=== PATIENT | female | born 1990 | race Caucasian/White ===

== ENCOUNTER 2017-06-19 21:06 | Emergency (ER) | payer SELFPAY ==
[~2017-06-19] VITALS: Ht 168.9 cm; Wt 91.2 kg
[2017-06-19 21:11] VITALS: TEMP 36.9; Ht 168.9 cm; Wt 91.2 kg
[2017-06-19] MEDS ORDERED: SODIUM CHLORIDE 0.9% 1000ML 1,000 ML IV STA (21:31)
--- NOTE | 2017-06-19 21:42 | EMERGENCY ROOM VISIT NOTE ---
History Report prepared by Kymibmarlen: Kristen Lerner Under the Supervision of: Dr. Asad Lin D.O. First contact with patient: 21:21 Chief Complaint: ED VAG BLEEDING Stated Complaint: MISCARRIED WED,POSSIBLE TISSUE LEFT,BLEEDING History of Present Illness The patient is a 26 year old female who presents to the Emergency Room with complaints of constant vaginal bleeding for three days. She also notes she found tissue in her vagina canal just prior to arrival. The patient found out that she was a couple weeks ago. [facility] and they told her that the fetus had no heartbeat and that she had a spontaneous . The patient notes that she passed a clump of white tissue two days ago. Her last normal period was 04/04/17. She has a history of migraines, has had her tonsils and wisdom teeth removed. She denies any alcohol or tobacco use. Source of History: patient Onset: tonight Timing: constant Note: Pt notes tissue in her vaginal canal Review of Systems See HPI for pertinent positives & negatives. A total of 10 systems reviewed and were otherwise negative. Past Medical & Surgical Surgical Problems: (1) Hx of tonsillectomy (2) [place] teeth removed Family History no pertinent family history stated Social History Smoking Status: Never Smoker Smokeless Tobacco Use: No Alcohol Use: none Marital Status: Current/Historical Medications Scheduled Ibuprofen (Advil), 800-1,000 MG PO prn Scheduled PRN Acetaminophen (Tylenol), 1,000 MG PO DAILY PRN for Headache or Pain Allergies Coded Allergies: Albuterol (Verified Allergy, Severe, FLARES UP ASTHMA, 06/19/17) Physical Exam Vital Signs Date Time Temp Pulse Resp B/P (MAP) Pulse Ox O2 Delivery O2 Flow Rate FiO2 06/20/17 01:20 102 18 117/71 100 06/19/17 21:11 36.9 102 18 127/80 100 Room Air Physical Exam GENERAL: Patient is awake, alert, and in no acute distress. Patient is resting uncomfortable and mildly anxious. EYES: The conjunctivae are clear. The pupils are round and reactive. EARS, NOSE, MOUTH AND THROAT: The nose is without any evidence of any deformity. Mucous membranes are moist tongue is midline NECK: The neck is nontender and supple. RESPIRATORY: Normal respiratory effort is noted there is no evidence of wheezing rhonchi or rales CARDIOVASCULAR: Regular rate and rhythm noted there no murmurs rubs or gallops normal S1 normal S2 GASTROINTESTINAL: The abdomen is soft. Bowel sounds are present in all quadrants. Abdomen is nontender MUSCULOSKELETAL/EXTREMITIES: There is no evidence of gross deformity full range of motion is noted in the hips and shoulders SKIN: There is no obvious evidence of any rash. There are no petechiae, pallor or cyanosis noted. NEUROLOGIC: Patient is awake alert and oriented x3 Medical Decision & Procedures ER Provider Diagnostic Interpretation: Radiology results as stated below per my review and radiologist interpretation: US OB 1st TRIMESTER: No evidence of intrauterine . Heterogeneous endometrium measures up to 1.9 cm with vascularity, cannot exclude retained products of conception. Unremarkable left ovary. Right ovary not visualized. Radiologist Radha Sommers Laboratory Results 06/19/17 21:48 Red Blood Count 4.24, Mean Corpuscular Volume 92.2, Mean Corpuscular Hemoglobin 30.4, Mean Corpuscular Hemoglobin Concent 33.0, Mean Platelet Volume 10.4, Neutrophils (%) (Auto) 59.5, Lymphocytes (%) (Auto) 32.6, Monocytes (%) (Auto) 6.9, Eosinophils (%) (Auto) 0.5, Basophils (%) (Auto) 0.2, Neutrophils # (Auto) 7.86, Lymphocytes # (Auto) 4.30, Monocytes # (Auto) 0.91, Eosinophils # (Auto) 0.07, Basophils # (Auto) 0.02 06/19/17 21:48 Test 06/19/17 21:48 06/19/17 23:20 White Blood Count 13.20 K/uL (4.8-10.8) Red Blood Count 4.24 M/uL (4.2-5.4) Hemoglobin 12.9 g/dL (12.0-16.0) Hematocrit 39.1 % (37-47) Mean Corpuscular Volume 92.2 fL (80-100) Mean Corpuscular Hemoglobin 30.4 pg (25-34) Mean Corpuscular Hemoglobin Concent 33.0 g/dl (32-36) Platelet Count 249 K/uL (130-400) Mean Platelet Volume 10.4 fL (7.4-10.4) Neutrophils (%) (Auto) 59.5 % Lymphocytes (%) (Auto) 32.6 % Monocytes (%) (Auto) 6.9 % Eosinophils (%) (Auto) 0.5 % Basophils (%) (Auto) 0.2 % Neutrophils # (Auto) 7.86 K/uL (1.4-6.5) Lymphocytes # (Auto) 4.30 K/uL (1.2-3.4) Monocytes # (Auto) 0.91 K/uL (0.11-0.59) Eosinophils # (Auto) 0.07 K/uL (0-0.5) Basophils # (Auto) 0.02 K/uL (0-0.2) RDW Standard Deviation 43.6 fL (36.4-46.3) RDW Coefficient of Variation 12.9 % (11.5-14.5) Immature Granulocyte % (Auto) 0.3 % Immature Granulocyte # (Auto) 0.04 K/uL (0.00-0.02) Prothrombin Time 10.3 SECONDS (9.0-12.0) Prothromb Time International Ratio 1.0 (0.9-1.1) Activated Partial Thromboplast Time 26.6 SECONDS (21.0-31.0) Partial Thromboplastin Ratio 1.0 Anion Gap 8.0 mmol/L (3-11) Est Creatinine Clear Calc Drug Dose 66.4 ml/min Estimated GFR () 55.9 Estimated GFR (Non- 48.3 BUN/Creatinine Ratio 7.4 (10-20) Calcium Level 9.3 mg/dl (8.5-10.1) Total Bilirubin 0.3 mg/dl (0.2-1) Aspartate Amino Transf (AST/SGOT) 12 U/L (15-37) Alanine Aminotransferase (ALT/SGPT) 26 U/L (12-78) Alkaline Phosphatase 89 U/L (45-117) Total Protein 7.9 gm/dl (6.4-8.2) Albumin 3.6 gm/dl (3.4-5.0) Globulin 4.3 gm/dl (2.5-4.0) Albumin/Globulin Ratio 0.8 (0.9-2) Human Chorionic Gonadotropin, Quant 211 mIU/mL Urine Color YELLOW Urine Appearance CLEAR (CLEAR) Urine pH 6.5 (4.5-7.5) Urine Specific [place] 1.016 (1.000-1.030) Urine Protein NEG (NEG) Urine Glucose (UA) NEG (NEG) Urine Ketones NEG (NEG) Urine Occult Blood 3+ (NEG) Urine Nitrite NEG (NEG) Urine Bilirubin NEG (NEG) Urine Urobilinogen NEG (NEG) Urine Leukocyte Esterase SMALL (NEG) Urine WBC (Auto) 5-10 /hpf (0-5) Urine RBC (Auto) >30 /hpf (0-4) Urine Hyaline Casts (Auto) 1-5 /lpf (0-5) Urine Epithelial Cells (Auto) 20-30 /lpf (0-5) Urine Bacteria (Auto) 2+ (NEG) Laboratory results per my review. Medications Administered Medications (Trade) Dose Ordered Sig/Kody Route Start Time Stop Time Status Last Admin Dose Admin Sodium Chloride 1,000 ml @ 999 mls/hr Q1H1M STAT IV 06/19/17 21:31 06/19/17 22:31 DC 06/19/17 21:50 999 MLS/HR ED Course 6: The patient was evaluated in room C4. A complete history and physical examination were performed. 2131: NSS 1,000 ml @ 999 mls/hr IV. 0029: I talked to the patient about setting her up with an OBGYN in [place]. 0104: I discussed the patient's case with Dr. [facility]. He recommends the patient has serial beta testing and return to the ED if it worsens. 0110: Upon reevaluation, the patient is resting. I discussed the results and treatment plan with her. She verbalized agreement of the treatment plan. The patient was discharged home. Medical Decision Differential diagnosis: Etiologies such as ectopic , dysfunction uterine bleeding, bleeding dyscrasia, trauma, infection, as well as others were entertained. Nursing notes reviewed. The patient is a 26-year-old female who presented to the emergency department for an evaluation of vaginal bleeding. The patient was recently diagnosed with an intrauterine and started having bleeding and passing of tissue. She continues to have cramping and vaginal bleeding but at this time her vital signs are stable. The patient has never been before. I discussed the patient's laboratory and radiographic studies with her. She refused a pelvic exam at this time. I discussed her case with the on-call OB/ [employer] physician. At this time he is recommended serial beta hCG testing with follow-up appointment with the [facility] CONDUCTOR physician. The patient was encouraged to call to schedule a follow-up appointment with the TRA[facility] CONDU[facility] physician. She was also encouraged to continue all medications as prescribed. She was also encouraged to return to the emergency department immediately if symptoms change worsen or if the need arises. Medication Reconcilliation Current Medication List: was personally reviewed by me Blood Pressure Screening Patient's blood pressure: Normal blood pressure Consults Time Called: 102 Consulting Physician: Dr. [facility]. Returned Call: [phone] We discussed the patient's case. He recommends the patient has serial beta testing and return to the ED if it worsens. Impression Primary Impression: Vaginal bleeding Additional Impression: Incomplete miscarriage Scribe Attestation The scribe's documentation has been prepared under my direction and personally reviewed by me in its entirety. I confirm that the note above accurately reflects all work, treatment, procedures, and medical decision making performed by me. Departure Information Dispostion Home / Self-Care Referrals No Doctor, Assigned (PCP) Forms HOME CARE DOCUMENTATION FORM, IMPORTANT VISIT INFORMATION, WORK / SCHOOL INSTRUCTIONS Patient Instructions Miscarriage Dc, [facility] Additional Instructions Call the [facility] physician to schedule a follow-up appointment. Continue all medications as prescribed. Drink plenty clear liquids. Continue using Motrin and Tylenol for cramping. I would recommend having the beta hCG quantitative repeated on a weekly basis to ensure that it is going back to a non- level. Avoid any sexual activity until you have been cleared by the TRA[facility] CON[facility]CTOR physician. Problem Qualifiers
[2017-06-19] MEDS ORDERED: ACET-1256 PO (22:16)
[2017-06-19] MEDS ORDERED: IBUP-1050 PO (22:16)
[2017-06-19 22:19] LABS: BASO % 0.2 %; BASO ABS # 0.02 K/uL (0-0.2); COMPLETE YES; EOS % 0.5 %; HEMATOCRIT 39.1 % (37-47); IG% 0.3 %; LYMPH % 32.6 %; MEAN CELL VOLUME 92.2 fL (80-100); MEAN CORPUSCULAR HEMOGLOBIN 30.4 pg (25-34); MEAN PLATELET VOLUME 10.4 fL (7.4-10.4); MONO % 6.9 %; NEUT % 59.5 %; PLATELET COUNT 249 K/uL (130-400); RED BLOOD COUNT 4.24 M/uL (4.2-5.4)
[2017-06-19 22:32] LABS: PROTHROMBIN TIME (PATIENT) 10.3 SECONDS (9.0-12.0)
[2017-06-19 22:42] LABS: BUN/CREATININE RATIO 7.4 (10-20); CALCIUM 9.3 mg/dl (8.5-10.1); CREATININE 1.5 mg/dl (0.60-1.20); POTASSIUM 3.7 mmol/L (3.5-5.1)
[2017-06-19 22:44] LABS: ALB/GLOB RATIO 0.8 (0.9-2)
[2017-06-19 23:52] LABS: URINE APPEARANCE CLEAR (CLEAR); URINE BILIRUBIN NEG (NEG); URINE COLOR YELLOW; URINE EPITHELIAL CELL AUTO 20-30 /lpf (0-5); URINE NITRITE NEG (NEG); URINE PH 6.5 (4.5-7.5); URINE SPECIFIC GRAVITY 1.016 (1.000-1.030); UROBILINOGEN NEG (NEG)
[2017-06-19 23:59] LABS: MANUAL MICROSCOPIC REQUIRED? NO; REVIEW REQ? NO
[2017-06-20 01:20] VITALS: BP 117/71; PULSE 102; O2SAT 100
--- NOTE | 2017-06-20 06:43 | DIAGNOSTIC IMAGING REPORT ---
<14 WKS SINGLE, TRANSVAG-FEMALE PELVIS CLINICAL HISTORY: 26 years-old Female presenting with bleeding. TECHNIQUE: Real-time grayscale and color and spectral Doppler ultrasound imaging of the pelvis was performed first using a transabdominal probe and subsequently transvaginal for better characterization. COMPARISON: None. FINDINGS: Uterus: No convincing evidence of an intrauterine gestational sac. The uterus is anteverted and normal in size, measuring 7.7 x 4.6 x 6.6 cm. Endometrium heterogeneous with focal hypervascularity near the fundus. The endometrium measures 1.5 to 1.8 cm in thickness. The cervix is distended with heterogeneous avascular material. Right adnexa: Right ovary not visualized. Left adnexa: Left ovary normal. Left ovary measures 3.0 x 1.3 x 2.1 cm. Normal color Doppler flow and arterial and venous waveforms within the ovarian parenchyma. Other: No free fluid. IMPRESSION: 1. No convincing evidence of a gestational sac. In the setting of a positive beta hCG, this is consistent with of unknown location. Clinical and imaging follow-up is warranted. 2. Heterogeneous and thickened appearance of the endometrium with focal hypervascularity near the fundus. In the setting of heterogeneous avascular material in the cervix, this appearance could suggest a miscarriage in progress with retained products at the fundus. Electronically signed by: Luis Angel Lyles M.D. 06/20/2017 6:42 AM Dictated Date/Time: 06/20/2017 6:38 AM
== END 2017-06-20 01:15 | disposition home or self-care (01) ==
LOC: C.EDB 21:08 → C.EDC 06-20 01:15
DX: N93.9 Abnormal uterine and vaginal bleeding, unspecified (principal); O03.4 Incomplete spontaneous abortion without complication

== ENCOUNTER 2018-03-13 20:18 | Emergency (ER) | payer OTHER ==
[~2018-03-13] VITALS: Ht 170.2 cm; Wt 91.0 kg
[2018-03-13 20:24] VITALS: BP 119/80; PULSE 97; TEMP 36.9; O2SAT 99; Ht 170.2 cm; Wt 91.0 kg
--- NOTE | 2018-03-13 21:00 | DIAGNOSTIC IMAGING REPORT ---
CT HEAD WITHOUT CONTRAST (CT) CLINICAL HISTORY: Head pain status post trauma COMPARISON STUDY: No previous studies for comparison. TECHNIQUE: Axial CT of the brain is performed from the vertex to the skull base. IV contrast was not administered for this examination. A dose lowering technique was utilized adhering to the principles of ALARA. CT DOSE: FINDINGS: No intra or extra-axial mass lesions are visualized. There is no CT evidence of acute cortical infarction. There is no evidence of midline shift. There is no acute hemorrhage. No calvarial fractures are visualized. There is no evidence of pathologic ventricular dilatation. There is no evidence of acute sinusitis IMPRESSION: Normal noncontrast head CT. Electronically signed by: Junior Arias M.D. 03/13/2018 8:59 PM Dictated Date/Time: 03/13/2018 8:58 PM
--- NOTE | 2018-03-13 21:02 | DIAGNOSTIC IMAGING REPORT ---
CT OF THE CERVICAL SPINE CLINICAL HISTORY: Neck pain status post trauma COMPARISON STUDY: No previous studies for comparison. CT DOSE: 1023.08 mGy.cm TECHNIQUE: CT scan of the cervical spine was performed from the skull base to the thoracic inlet. Images are reviewed in the axial, sagittal, and coronal planes. IV contrast was not administered for this examination. A dose lowering technique was utilized adhering to the principles of ALARA. FINDINGS: There are mildly prominent jugular digastric lymph nodes, likely reactive. The prevertebral soft tissues are normal. No fractures or subluxations are visualized. IMPRESSION: No evidence of acute fracture or traumatic subluxation. Electronically signed by: Junior Arias M.D. 03/13/2018 9:01 PM Dictated Date/Time: 03/13/2018 8:59 PM
--- NOTE | 2018-03-13 21:24 | EMERGENCY ROOM VISIT NOTE ---
History Report prepared by Serafin: Annie Lopez Under the Supervision of: Dr. Oswaldo Shabazz M.D. First contact with patient: 20:26 Chief Complaint: HEAD INJURY (MINOR) Stated Complaint: HEADACHE,NAUSEA,DIZZY- POSSIBLE CONCUSSION History of Present Illness The patient is a 27 year old female who presents to the Emergency Room with complaints of persistent headache starting 2 days ago. The patient was working at [employer] when some boxes fell and hit the right side of her head 2 days ago. The boxes were filled with other empty boxes and were not very heavy. She stumbled, but did not fall to the ground. She did not hit her head on the ground. She might have hit her head on some other boxes that were behind her. She does not think that she lost consciousness. Since then, she has been having nausea, light sensitivity, headache, dizziness, and right sided neck stiffness with turning her head. These symptoms all started after the head injury. Her headache is on the right side. She describes the pain as throbbing. It worsens with light. She is having some pain by her right shoulder blade. She denies any vomiting or fever. She had a concussion around several years ago. She did have migraines with her previous concussion. She has a history of sports induced asthma and SVT. She denies any chance of . Source of History: patient Onset: 2 days ago Position: head Quality: other (throbbing) Timing: other (persistent) Modifying Factors (Worsening): other (light) Associated Symptoms: + neck pain, + nausea, No LOC, No fevers, No vomiting Note: Pt reports dizziness. Review of Systems See HPI for pertinent positives & negatives. A total of 10 systems reviewed and were otherwise negative. Past Medical & Surgical Surgical Problems: (1) Hx of tonsillectomy (2) [place] teeth removed Family History Cancer Diabetes mellitus Heart disease Social History Smoking Status: Never Smoker Alcohol Use: none Marital Status: Occupation Status: employed Current/Historical Medications Scheduled PRN Acetaminophen (Tylenol), 1,000 MG PO UD PRN for Pain or Fever Ibuprofen (Advil), 200 MG PO UD PRN for Pain or Fever Allergies Coded Allergies: Albuterol (Verified Allergy, Severe, FLARES UP ASTHMA, 06/19/17) Physical Exam Vital Signs Date Time Temp Pulse Resp B/P (MAP) Pulse Ox O2 Delivery O2 Flow Rate FiO2 03/13/18 20:24 36.9 97 20 119/80 99 Room Air Physical Exam Constitutional: Vital signs reviewed. Eyes: Pupils are equal round reactive to light. Conjunctiva are noninjected. ENT: Pharynx is clear without erythema or exudate. Mucous membranes are moist. Neck supple without meningeal signs. Respiratory: Clear to auscultation bilaterally. Breath sounds are equal bilaterally. Cardiovascular: Regular rate and rhythm. No rubs or gallops. GI: Soft, nondistended and nontender. Bowel sounds are present. Musculoskeletal: No peripheral edema. No lower extremity tenderness. Integumentary: No cyanosis. Neurological: The patient is awake and alert. Cranial nerves II-XII are intact. Motor is 5 out of 5 all extremities. Sensation is intact to light touch all extremities. Normal speech. No pronator drift. Psychiatric: Normal affect. Medical Decision & Procedures ER Provider Diagnostic Interpretation: Radiology results as stated below per my review and the radiologist's interpretation: CT HEAD WITHOUT CONTRAST (CT) CLINICAL HISTORY: Head pain status post trauma COMPARISON STUDY: No previous studies for comparison. TECHNIQUE: Axial CT of the brain is performed from the vertex to the skull base. IV contrast was not administered for this examination. A dose lowering technique was utilized adhering to the principles of ALARA. CT DOSE: FINDINGS: No intra or extra-axial mass lesions are visualized. There is no CT evidence of acute cortical infarction. There is no evidence of midline shift. There is no acute hemorrhage. No calvarial fractures are visualized. There is no evidence of pathologic ventricular dilatation. There is no evidence of acute sinusitis IMPRESSION: Normal noncontrast head CT. Electronically signed by: Junior Arias M.D. 03/13/2018 8:59 PM Dictated Date/Time: 03/13/2018 8:[address] OF THE CERVICAL SPINE CLINICAL HISTORY: Neck pain status post trauma COMPARISON STUDY: No previous studies for comparison. CT DOSE: 1023.08 mGy.cm TECHNIQUE: CT scan of the cervical spine was performed from the skull base to the thoracic inlet. Images are reviewed in the axial, sagittal, and coronal planes. IV contrast was not administered for this examination. A dose lowering technique was utilized adhering to the principles of ALARA. FINDINGS: There are mildly prominent jugular digastric lymph nodes, likely reactive. The prevertebral soft tissues are normal. No fractures or subluxations are visualized. IMPRESSION: No evidence of acute fracture or traumatic subluxation. Electronically signed by: Junior Arias M.D. 03/13/2018 9:01 PM Dictated Date/Time: 03/13/2018 8:59 PM Laboratory Results Test 03/13/18 20:33 Laboratory results as reviewed by me. ED Course 2026: The patient was evaluated in room A4B. A complete history and physical exam was performed. 2107: Upon reevaluation, the patient was resting comfortably. I discussed tonight's findings with her. She verbalized agreement of the treatment plan. She was discharged home. Medical Decision This is a 27-year-old female who presents with headache and neck pain after a head injury. Differential diagnosis includes contusion, concussion, intracranial hemorrhage, cervical strain, cervical fracture, migraine. I did perform a limited focused review of portions of the patient's old chart on the electronic medical record. The patient has had no recent pertinent visits to this hospital. I did evaluate the patient as noted above. The patient is presenting after a head injury while at work. She sustained the injury 2 days ago but has a persistent headache with nausea. She also complains of neck pain. She is neurologically intact. She does have a history of prior concussion and migraine. Urine test was negative. After discussion with the patient , I did order a CT of the head and cervical spine. I did review the images myself as well as the radiology report as described above. There is no evidence of acute abnormality. I did discuss the test results with the patient. She was advised to take Tylenol Motrin for symptoms. She is advised to follow-up with her doctor or the [facility] orthopedics head injury clinic. Head Trauma GCS Score: 15 Medication Reconcilliation Current Medication List: was personally reviewed by me Blood Pressure Screening Patient's blood pressure: Normal blood pressure Blood pressure disposition: Did not require urgent referral Impression Primary Impression: Acute head injury Additional Impression: Neck pain Scribe Attestation The scribe's documentation has been prepared under my direct and personally reviewed by me in its entirety. I confirm that the note above accurately reflects all work, treatment, procedures, and medical decision making performed by me. Departure Information Dispostion Home / Self-Care Referrals No Doctor, Assigned (PCP) Forms HOME CARE DOCUMENTATION FORM, IMPORTANT VISIT INFORMATION Patient Instructions ED Head Injury Closed, My [facility] Additional Instructions You have been examined and treated today on an emergency basis only. This is not a substitute for, or an effort to provide, complete comprehensive medical care. It is impossible to recognize and treat all injuries or illnesses in a single emergency department visit. It is therefore important that you follow up closely with your physician and/or the [facility] head injury clinic. Call as soon as possible for an appointment. Return for worsening symptoms or if you develop fever, vomiting, numbness or weakness on one side of your body, confusion, difficulty with your speech or walking or any other concerning symptoms. Problem Qualifiers Primary Impression: Acute head injury Encounter type: initial encounter Qualified Codes: S09.90XA - Unspecified injury of head, initial encounter
[2018-03-13] MEDS ORDERED: ACET-1256 PO (22:16)
[2018-03-13] MEDS ORDERED: IBUP-1050 PO (22:16)
== END 2018-03-13 21:21 | disposition home or self-care (01) ==
LOC: C.EDB 20:19 → C.EDA 21:21
DX: S09.90XA Unspecified injury of head, initial encounter (principal); M54.2 Cervicalgia; W20.8XXA Other cause of strike by thrown, projected or falling object, initial encounter; Y92.512 Supermarket, store or market as the place of occurrence of the external cause; Y99.0 Civilian activity done for income or pay; Z88.8 Allergy status to other drugs, medicaments and biological substances